=== PATIENT | female | born 1960 | race Caucasian/White ===

== ENCOUNTER 2019-07-18 11:05 | Emergency (ER) | payer OTHER ==
[~2019-07-18] VITALS: Ht 167.6 cm; Wt 86.6 kg
[2019-07-18] MEDS ORDERED: METHYLPREDNISOLONE SOD SUCC 125 MG/2ML VIAL IV ONE (11:30)
[2019-07-18] MEDS ORDERED: DIPHENHYDRAMINE HCL INJ 50 MG/ML VIAL IV ONE (11:30)
[2019-07-18] MEDS ORDERED: DEXAMETHASONE SOD PHOS 10 MG/1 ML VIAL IM ONE (11:30)
[2019-07-18] MEDS ORDERED: FAMOTIDINE 20 MG TAB PO ONE (11:30)
--- NOTE | 2019-07-18 11:38 | Emergency Department Note ---
History of Present Illnes History of Present Illness Chief Complaint: Skin Rash or Abscess History of Present Illness This is a 59 year old female . c/o rash to face exts and groin x 3 days Arrival Mode: Car Onset (how long ago): day(s) (43 days) Radiation: non-radiation, back, neck, extremity, abdomen, periumbilical, flank, proximal, distal, other Severity: severe Duration (how long): day(s) (3 days) Progression: unchanged Context: recent illness, recent surgery, recent immobilization, recent travel, trauma/injury, new medications, hx of DVT/PE, non-compliance w/ medications, other Relieving factors: none Exacerbating factors: none Treatments prior to arrival: none Past Medical/Family History Physician Review I have reviewed the patient's past medical and family history. Any updates have been documented here. Past Medical History Recent Fever: No Clinical Suspicion of Infectio: No New/Unexplained Change in Ment: No Past Medical History: None Past Surgical History: Tubal Ligation Social History Smoking Cessation: Never Smoker Alcohol Use: None Any Illegal Drug Use: No TB Exposure/Symptoms: No Physically hurt or threatened: No Family History Family history of heart diseas: No Other Last Tetanus: UNK Any Pre-Existing Lines (PICC,: No Review of Systems Review of Systems Constitutional: no symptoms EENTM: no symptoms Cardiovascular: no symptoms Respiratory: no symptoms Gastrointestinal: no symptoms Genitourinary: no symptoms Musculoskeletal: other (c/o rash to face exts and groain ); back pain, joint pain, joint swelling, muscle pain Neurological: no symptoms Psychological: no symptoms Endocrine: no symptoms Hematological/Lymphatic: no symptoms Review of other systems All other systems reviewed and negative. Physical Exam Related Data Allergies: Coded Allergies: ampicillin (Verified Allergy, Unknown, 07/18/19) Triage Vital Signs Vital Signs Date Time Temp Pulse Resp B/P (MAP) Pulse Ox O2 Delivery O2 Flow Rate FiO2 07/18/19 11:27 98.7 108 18 200/108 97 Vital signs reviewed: Yes Physical Exam CONSTITUTIONAL Constitutional: well-developed, well-nourished HENT HENT: normocephalic, atraumatic, oropharynx clear/moist, nose normal, other (no angio edema noted ) HENT L/R: left ext ear normal, right ext ear normal EYES Eyes: PERRL, conjunctivae normal NECK Neck: ROM normal PULMONARY Pulmonary: effort normal, breath sounds normal CARDIOVASCULAR Cardiovascular: regular rhythm, heart sounds normal, capillary refill normal, normal rate GASTROINTESTINAL Abdominal: soft, nontender, bowel sounds normal GENITOURINARY Genitourinary: exam deferred SKIN Skin: warm, dry, rash (c/o posion vladimir /sumac reaction to face all exts and groin sts fell into posion vladimir accidentlly Fri evening ), other (exam c/w allergic reaction to posion vladimir/sumac ); pale MUSCULOSKELETAL Musculoskeletal: ROM normal NEUROLOGICAL Neurological: alert, oriented x 3, no gross motor or sensory deficits PSYCHOLOGICAL Psychological: mood/affect normal, judgement normal Critical Care Time Subsequent provider I assumed direction of critical care for this patient from another provider of my specialty. Assessment & Plan Reassessment Reassessment 59y f presented to ed c/o posion vladimir /sumac reaction to face all exts and groin sts fell into posion vladimir accidentlly Fri evening - noted swelling to face noted rash to all exts - pt meidcated w decadron solumedrol pepcid benadryl Assessment & Plan Final Impression: (1) ALLERGIC CONTACT DERMATITIS DUE TO PLANTS, EXCEPT FOOD Assessment & Plan discussed plan of care and f/u instructions plan: 1. tylenol and motrin and benadryl as needed 2. return to ed as needed 3. follow up with your doctor/training intern in 1-2 days without fail 4. rx pepcid / prednsone / bactroband oint / bactrim Depart Disposition: HOME, SELF-CARE Last Vital Signs Date Time Temp Pulse Resp B/P (MAP) Pulse Ox O2 Delivery O2 Flow Rate FiO2 07/18/19 11:27 98.7 108 18 200/108 97 Medications in the ED Dexamethasone Sodium Phosphate 10 mg ONCE ONCE IM ; Start 07/18/19 at 11:30; Stop 07/18/19 at 11:31; Status UNV Methylprednisolone Sodium Succinate 125 mg ONCE ONCE IV ; Start 07/18/19 at 11:30; Stop 07/18/19 at 11:31; Status UNV Famotidine 40 mg ONCE ONCE PO ; Start 07/18/19 at 11:30; Stop 07/18/19 at 11:31; Status UNV Diphenhydramine HCl 50 mg NOW ONCE IV ; Start 07/18/19 at 11:30; Stop 07/18/19 at 11:31; Status UNV LOREN JENKINS Jul 18, 2019 11:38
[2019-07-18 13:24] VITALS: BP 174/89
== END 2019-07-18 13:29 | disposition home or self-care (01) ==
LOC: ER 11:05
DX: L23.7 Allergic contact dermatitis due to plants, except food (principal)
CPT/HCPCS: 99283; J1100; J1200; J2930